=== PATIENT | female | born 1980 | race Caucasian/White ===

== ENCOUNTER 2018-10-25 00:26 | Emergency (ER) | payer OTHER ==
[2018-10-25] MEDS ORDERED: TORAdol 30 mg Injection IM ONE (00:40)
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
[2018-10-25] MEDS ORDERED: TORAdol 30 mg Injection ONE (01:03)
[2018-10-25 01:32] VITALS: BP 128/84; PULSE 84; O2SAT 98
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
== END 2018-10-25 01:38 | disposition home or self-care (01) ==
LOC: ED 00:26
DX: S92.321A Displaced fracture of second metatarsal bone, right foot, initial encounter for closed fracture (principal); S60.511A Abrasion of right hand, initial encounter; V86.65XA Passenger of 3- or 4- wheeled all-terrain vehicle (ATV) injured in nontraffic accident, initial encounter; F41.9 Anxiety disorder, unspecified; M79.89 Other specified soft tissue disorders
CPT/HCPCS: 73130; 96372; 99284; J1885

== ENCOUNTER 2021-10-01 07:23 | Emergency (ER) | payer OTHER ==
[2021-10-01] MEDS ORDERED: Sodium Chloride 0.9% 1000 ML 1,000 ML IV STA (07:53)
[2021-10-01] MEDS ORDERED: Zofran 4 MG/2 ML VIAL IV ONE (07:53)
[2021-10-01 07:55] VITALS: O2SAT 98
[2021-10-01] MEDS ORDERED: Sodium Chloride 0.9% 1000 ML 1,000 ML ONE (07:57)
[2021-10-01] MEDS ORDERED: Zofran 4 MG/2 ML VIAL ONE (07:57)
[2021-10-01 08:04] LABS: Absolute Neutrophil Ct (ANC) 5.71 (1.4-6.9); Basophil (Absolute #) 0.02 (0-0.4); Eosinophil % 1.4 % (0.00-5.0); Eosinophil (Absolute #) 0.12 (0-0.5); Hematocrit 40.1 % (35-47); Hemoglobin 13.4 gm/dl (12.0-16.0); Lymphocyte (Absolute #) 1.79 (1.0-4.6); Mean Cell Volume 95.9 fl (78-100); Mean Corpuscular Hemoglobin 32.1 pg (26-32); Mean Corpuscular Hgb Concent. 33.4 g/dl (32-36); Monocyte (Absolute #) 0.87 (0.0-1.3); Monocytes % 10.2 % (0.0-12.0); Neutrophil % 67.2 % (36.0-66.0); Platelet Count 242 K/mm3 (150-450); Red Blood Count 4.18 M/mm3 (4.1-5.4); Red Cell Distribution Width 13.8 % (11.5-14.0); White Blood Count 8.5 K/mm3 (4.0-10.5)
[2021-10-01 08:10] LABS: Appearance CLEAR (CLEAR); Bilirubin NEGATIVE (NEGATIVE); Blood SMALL Ery/ul (0-5); Epithelial Cells RARE /HPF (FEW); Glucose NEGATIVE (NEGATIVE); Ketones NEGATIVE (NEGATIVE); Leukocyte Esterase NEGATIVE (NEGATIVE); Mucus SLIGHT /HPF (NEGATIVE); Nitrite NEGATIVE (NEGATIVE); Protein,Urine Dip NEGATIVE (Negative); RBC 0-2 /HPF (0-2); Specific Gravity 1.025 (1.005-1.025); Urobilinogen NEGATIVE mg/dL (0-1)
--- NOTE | 2021-10-01 08:11 | ERPHSYRPT ---
- History of Present Illness Time Seen by Provider: 10/01/21 07:30 Historian: translator/interpreter Exam Limitations: no limitations Patient Subjective Stated Complaint: "My stomach hurt." Triage Nursing Assessment: 41 y/o white female with PMH significant for gallbladder disease (sludge in 2018). Reported acute onset RUQ pain around 0200 on 10/01/21 with 2 episodes of vomiting and no diarrhea. She reported that the pain was 6/10 at its worst and has decreased to a 3/10. Denied chest pain, shortness of breath, diarrhea/constipation. Symmetrical chest expansion. heart tones S1/S2 RRR without extra sounds. Lungs vesicular with adequate airflow. Abdomen non-distended, non-surgical, and without peritoneal signs. No noted voluntary/involuntary gaurding or rebound. Negative Lindo's sign. Pt reported mild discomfort in the RUQ upon palpation. Physician History: This is a 41-year-old white female who has known history of gallbladder sludge that was diagnosed 3 to 4 years ago on ultrasound. Apparently, she underwent a HIDA scan which the gallbladder ejection fraction was normal and she was not offered cholecystectomy. In the last year she has had a couple episodes of epigastric, right upper quadrant abdominal pain with radiation into her back. Last night she had chili and a grilled cheese sandwich. This morning, approxi-4 AM she had right upper quad abdominal pain that radiated into her back. The pain was severe as was the nausea. She had a small amount of emesis. On arrival to the emergency room the patient states her pain is better but still present in the right upper quadrant at a level of 3 out of 10. She still has significant nausea. Patient underwent a transabdominal pelvic sonogram on 09/15/2021 and there was a small uterine fibroid present. Patient's primary care provider is Dr. Barajas Timing/Duration: today Activities at Onset: none Quality: aching, stabbing Abdominal Pain Onset Location: RUQ Pain Radiation: back (Right back) Severity of Pain-Max: moderate Severity of Pain-Current: mild Modifying Factors: Improves With: analgesics, vomiting Associated Symptoms: nausea, vomiting, No chest pain, No shortness of breath Previous symptoms: same symptoms as today, no recent treatment Allergies/Adverse Reactions: erythromycin base Allergy (Verified 10/01/21 07:30) Home Medications: Omeprazole 20 mg PO DAILY 10/25/18 [History] Hx Tetanus, Diphtheria Vaccination/Date Given: Yes (2017) Hx Influenza Vaccination/Date Given: No Hx Pneumococcal Vaccination/Date Given: No Travel Risk - International Travel Have you traveled outside of the country in past 3 weeks: No - Coronavirus Screening Are you exhibiting any of the following symptoms?: No Close contact with a COVID-19 positive Pt in past 14-21 Days: No - Vaccine Status Have you recieved a Covid-19 vaccination: Yes Lay Out Technician: Vimessa - Review of Systems Constitutional: No Symptoms Eyes: No Symptoms Ears, Nose, & Throat: No Symptoms Respiratory: No Symptoms Cardiac: No Symptoms Abdominal/Gastrointestinal: Abdominal Pain (Right upper quadrant), Nausea, Vomiting Genitourinary Symptoms: No Symptoms Musculoskeletal: No Symptoms Skin: No Symptoms Neurological: No Symptoms Psychological: No Symptoms Endocrine: No Symptoms Hematologic/Lymphatic: No Symptoms Immunological/Allergic: No Symptoms All Other Systems: Reviewed and Negative - Past Medical History Pertinent Past Medical History: Yes Cardiac History: High Cholesterol GI Medical History: Gallbladder Disease Psycho-Social History: Anxiety - Past Surgical History Past Surgical History: Yes Other Surgical History: rt eye sclero buckle - Social History Smoking Status: Current every day smoker How long have you smoked: 1 yr Exposure to second hand smoke: No Drug Use: none Patient Lives Alone: No - Female History Hx Now: No - Nursing Vital Signs Nursing Vital Signs: Initial Vital Signs Temperature 97 F 10/01/21 07:23 Pulse Rate 68 10/01/21 07:23 Respiratory Rate 18 10/01/21 07:23 Blood Pressure 148/94 10/01/21 07:23 O2 Sat by Pulse Oximetry 98 10/01/21 07:23 Pain Scale Pain Intensity 3 - Physical Exam General Appearance: no apparent distress, alert, anxiety Eye Exam: PERRL/EOMI, eyes nml inspection Ears, Nose, Throat Exam: normal ENT inspection, moist mucous membranes Neck Exam: normal inspection, non-tender, supple, full range of motion Respiratory Exam: normal breath sounds, lungs clear, airway intact, No chest tenderness, No respiratory distress Cardiovascular Exam: regular rate/rhythm, normal heart sounds, normal peripheral pulses Gastrointestinal/Abdomen Exam: soft, normal bowel sounds, tenderness (Right upper quadrant), guarding (Right upper quadrant), No rebound Pelvic Exam: not done Rectal Exam: not done Back Exam: normal inspection, normal range of motion, No CVA tenderness, No vertebral tenderness Extremity Exam: normal inspection, normal range of motion, pelvis stable Neurologic Exam: alert, oriented x 3, cooperative, auto garage 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 II-XII nml as tested, normal mood/affect, nml cerebellar function, nml station & gait, sensation nml Skin Exam: normal color, warm, dry Lymphatic Exam: No adenopathy SpO2 Interpretation: normal SpO2: 98 O2 Delivery: Room Air - Course Nursing assessment & vital signs reviewed: Yes Ordered Tests: Active Orders 24 hr Category Date Time Status IV Insertion STAT Care 10/01/21 07:53 Active ABDOMEN AND PELVIS W/0 CONTRAS [CT] Stat Exams 10/01/21 08:22 Completed AMYLASE Stat Lab 10/01/21 07:50 Completed CBC W DIFF Stat Lab 10/01/21 07:50 Completed CMP Stat Lab 10/01/21 07:50 Completed CULTURE,URINE Stat Lab 10/01/21 07:54 Received HCG,QUALITATIVE URINE Stat Lab 10/01/21 07:55 Completed LIPASE Stat Lab 10/01/21 07:50 Completed Lactic Acid Stat Lab 10/01/21 07:53 Completed UA W/RFX UR CULTURE Stat Lab 10/01/21 07:53 Completed Medication Summary Generic Name Dose Route Start Last Admin Trade Name Freq PRN Reason Stop Dose Admin Sodium Chloride 1,000 mls @ 999 mls/hr 10/01/21 07:53 10/01/21 08:00 Sodium Chloride 0.9% 1000 Ml IV 10/01/21 08:53 999 mls/hr .[id number] STA Administration Discontinued Medications Generic Name Dose Route Start Last Admin Trade Name Freq PRN Reason Stop Dose Admin Sodium Chloride Confirm 10/01/21 07:57 Sodium Chloride 0.9% 1000 Ml Administered 10/01/21 07:58 Dose 1,000 mls @ ud .ROUTE .STK-MED ONE Ondansetron HCl 4 mg 10/01/21 07:53 10/01/21 08:00 Ondansetron Hcl 4 Mg/2 Ml Vial IV 10/01/21 07:54 4 mg STAT ONE Administration Ondansetron HCl Confirm 10/01/21 07:57 Ondansetron Hcl 4 Mg/2 Ml Vial Administered 10/01/21 07:58 Dose 4 mg .ROUTE .STK-MED ONE Lab/Rad Data: Laboratory Result Diagrams 10/01/21 07:50 10/01/21 07:50 Laboratory Results 10/01/21 10/01/21 10/01/21 Range/Units 07:55 07:53 07:53 WBC (4.0-10.5) K/mm3 RBC (4.1-5.4) M/mm3 Hgb (12.0-16.0) gm/dl Hct (35-47) % MCV (78-100) fl MCH (26-32) pg MCHC (32-36) g/dl RDW (11.5-14.0) % Plt Count (150-450) K/mm3 MPV (7.5-11.0) fl Gran % (36.0-66.0) % Eos # (Auto) (0-0.5) Absolute Lymphs (auto) (1.0-4.6) Absolute Monos (auto) (0.0-1.3) Lymphocytes % (24.0-44.0) % Monocytes % (0.0-12.0) % Eosinophils % (0.00-5.0) % Basophils % (0.0-0.4) % Absolute Granulocytes (1.4-6.9) Basophils # (0-0.4) Sodium (137-145) mmol/L Potassium (3.5-5.1) mmol/L Chloride (98-107) mmol/L Carbon Dioxide (22-30) mmol/L Anion Gap (5-15) MEQ/L BUN (7-17) mg/dL Creatinine (0.52-1.04) mg/dL Estimated GFR ML/MIN Glucose (74-106) mg/dL Lactic Acid 1.3 (0.4-2.0) Calcium (8.4-10.2) mg/dL Total Bilirubin (0.2-1.3) mg/dL AST (14-36) U/L ALT (0-35) U/L Alkaline Phosphatase (38-126) U/L Serum Total Protein (6.3-8.2) g/dL Albumin (3.5-5.0) g/dL Amylase (30-110) U/L Lipase (23-300) U/L Urine Color YELLOW (YELLOW) Urine Appearance CLEAR (CLEAR) Urine pH 5.0 (5-6) Ur Specific Ferguson 1.025 (1.005-1.025) Urine Protein NEGATIVE (Negative) Urine Ketones NEGATIVE (NEGATIVE) Urine Blood SMALL (0-5) Melvin/ul Urine Nitrite NEGATIVE (NEGATIVE) Urine Bilirubin NEGATIVE (NEGATIVE) Urine Urobilinogen NEGATIVE (0-1) mg/dL Ur Leukocyte Esterase NEGATIVE (NEGATIVE) Urine WBC (Auto) NONE (0-5) /HPF Urine RBC (Auto) 0-2 (0-2) /HPF U Epithel Cells (Auto) RARE (FEW) /HPF Urine Bacteria (Auto) NONE SEEN (NEGATIVE) /HPF Urine Mucus (Auto) SLIGHT (NEGATIVE) /HPF Urine Culture Reflexed NO (NO) Urine Glucose NEGATIVE (NEGATIVE) mg/dL Urine HCG, Qual NEGATIVE (Negative) 10/01/21 10/01/21 Range/Units 07:50 07:50 WBC 8.5 (4.0-10.5) K/mm3 RBC 4.18 (4.1-5.4) M/mm3 Hgb 13.4 (12.0-16.0) gm/dl Hct 40.1 (35-47) % MCV 95.9 (78-100) fl MCH 32.1 H (26-32) pg MCHC 33.4 (32-36) g/dl RDW 13.8 (11.5-14.0) % Plt Count 242 (150-450) K/mm3 MPV 12.0 H (7.5-11.0) fl Gran % 67.2 H (36.0-66.0) % Eos # (Auto) 0.12 (0-0.5) Absolute Lymphs (auto) 1.79 (1.0-4.6) Absolute Monos (auto) 0.87 (0.0-1.3) Lymphocytes % 21.0 L (24.0-44.0) % Monocytes % 10.2 (0.0-12.0) % Eosinophils % 1.4 (0.00-5.0) % Basophils % 0.2 (0.0-0.4) % Absolute Granulocytes 5.71 (1.4-6.9) Basophils # 0.02 (0-0.4) Sodium 138 (137-145) mmol/L Potassium 4.0 (3.5-5.1) mmol/L Chloride 106 (98-107) mmol/L Carbon Dioxide 23 (22-30) mmol/L Anion Gap 12.9 (5-15) MEQ/L BUN 8 (7-17) mg/dL Creatinine 0.72 (0.52-1.04) mg/dL Estimated GFR > 60.0 ML/MIN Glucose 99 (74-106) mg/dL Lactic Acid (0.4-2.0) Calcium 9.4 (8.4-10.2) mg/dL Total Bilirubin 0.40 (0.2-1.3) mg/dL AST 18 (14-36) U/L ALT 15 (0-35) U/L Alkaline Phosphatase 63 (38-126) U/L Serum Total Protein 7.1 (6.3-8.2) g/dL Albumin 4.2 (3.5-5.0) g/dL Amylase 78 (30-110) U/L Lipase 73 (23-300) U/L Urine Color (YELLOW) Urine Appearance (CLEAR) Urine pH (5-6) Ur Specific Ferguson (1.005-1.025) Urine Protein (Negative) Urine Ketones (NEGATIVE) Urine Blood (0-5) Melvin/ul Urine Nitrite (NEGATIVE) Urine Bilirubin (NEGATIVE) Urine Urobilinogen (0-1) mg/dL Ur Leukocyte Esterase (NEGATIVE) Urine WBC (Auto) (0-5) /HPF Urine RBC (Auto) (0-2) /HPF U Epithel Cells (Auto) (FEW) /HPF Urine Bacteria (Auto) (NEGATIVE) /HPF Urine Mucus (Auto) (NEGATIVE) /HPF Urine Culture Reflexed (NO) Urine Glucose (NEGATIVE) mg/dL Urine HCG, Qual (Negative) - Progress Progress Note: 10/01/21 08:47 CAT scan of the abdomen and pelvis shows a single 1.4 cm gallbladder calculus present. - Departure Departure Disposition: Home Clinical Impression: Right upper quadrant abdominal pain, Nausea and vomiting, Cholelithiasis Condition: Stable Critical Care Time: No Referrals: MANAN MCGOVERN [Primary Care Provider] - Follow up/PCP as directed Additional Instructions: Avoid fatty greasy spicy foods. Follow-up with your primary care provider for further evaluation and management. Prescriptions: Ondansetron ODT 4 MG [Zofran Odt 4 mg] 4 mg PO Q6H PRN PRN #10 tablet PRN Reason: Vomiting
[2021-10-01 08:24] LABS: Bacteria NONE SEEN /HPF (NEGATIVE)
[2021-10-01 08:28] LABS: ALBUMIN 4.2 g/dL (3.5-5.0); ALKALINE PHOSPHATASE 63 U/L (38-126); AMYLASE 78 U/L (30-110); ANION GAP 12.9 MEQ/L (5-15); BLOOD UREA NITROGEN 8 mg/dL (7-17); CHLORIDE 106 mmol/L (98-107); Calcium 9.4 mg/dL (8.4-10.2); Carbon Dioxide 23 mmol/L (22-30); Creatinine 1 0.72 mg/dL (0.52-1.04); EST GLOMERULAR FILTRATION RATE > 60.0 ML/MIN; Glucose 99 mg/dL (74-106); LIPASE 73 U/L (23-300); SGOT/AST 18 U/L (14-36); SGPT/ALT 15 U/L (0-35); SODIUM 138 mmol/L (137-145); Total Protein 7.1 g/dL (6.3-8.2)
--- NOTE | 2021-10-01 08:45 | XRAY ---
Indication: Right upper quadrant pain and nausea. Multiple contiguous axial images obtained through the abdomen and pelvis without contrast using renal stone protocol. Comparison: None Lung bases are clear. Heart not enlarged. No renal calculus or evidence for obstructive uropathy in either system. No free fluid/air. Noncontrasted stomach and bowel loops appear nonobstructed. Normal appendix. Mild scattered descending and sigmoid diverticulosis without diverticulitis. Gallbladder mildly distended with 1.4 cm stone. Remaining liver, gallbladder, pancreas, spleen, adrenal glands, kidneys, ureters, bladder, uterus, and aorta are unremarkable for noncontrast exam. Osseous structures intact. Impression: 1. Negative renal calculus or evidence for obstructive uropathy. 2. 1.4 cm gallstone better evaluated with sonogram if clinically warranted. 3. Incidental colonic diverticulosis.
[2021-10-01 08:49] VITALS: BP 140/77; PULSE 71
== END 2021-10-01 09:04 | disposition home or self-care (01) ==
LOC: ED 07:23
DX: K80.20 Calculus of gallbladder without cholecystitis without obstruction (principal); R10.11 Right upper quadrant pain; R11.2 Nausea with vomiting, unspecified; E78.5 Hyperlipidemia, unspecified; Z72.0 Tobacco use
CPT/HCPCS: 36000; 36415; 74176; 80053; 81001; 82150; 83605; 83690; 84703; 85025; 87086; 96360; 96374; 99284; J2405

== ENCOUNTER 2023-05-15 17:49 | Emergency (ER) | payer OTHER ==
[2023-05-15] MEDS ORDERED: TORAdol 30 mg Injection IV ONE (18:07)
[2023-05-15] MEDS ORDERED: Zofran 4 MG/2 ML VIAL IV ONE (18:07)
[2023-05-15] MEDS ORDERED: Sodium Chloride 0.9% 1000 ML 1,000 ML IV STA (18:07)
[2023-05-15] MEDS ORDERED: TYLENOL 325 MG PO ONE (18:07)
[2023-05-15] MEDS ORDERED: solu-MEDROL 125 MG, Sterile H2O 10 ml 10 ML IV ONE ×2 (18:07)
--- NOTE | 2023-05-15 18:07 | ERPHSYRPT ---
- History of Present Illness Time Seen by Provider: 05/15/23 18:00 Source: patient Exam Limitations: no limitations Patient Subjective Stated Complaint: Migraine Headache Triage Nursing Assessment: Patient has had a typical migraine headache for the past 1 day that has not responded to her home medications Physician History: Patient comes in with a left-sided throbbing headache typical of her usual migraines that has not responded to home therapy and is lasted for the past 1 day. Patient is on continuous hormone therapy as she states that is hormone induced to help prevent these headaches. She has not been evaluated treated anymore for headache over the past 1 day. Timing/Duration: yesterday Quality: throbbing Head Pain Location: parietal Severity of Pain-Max: moderate Severity of Pain-Current: moderate Recent Head Trauma: chronic headaches (Usually gets to a month and is on hormone contraception to help prevent him) Modifying Factors: Improves With: rest. Worsens With: exposure to light, movement, noise Associated Symptoms: sensitive to light, No confusion, No dizziness, No fatigue, No facial pain, No fever/chills, No flushing, No light-headedness, No loss of consciousness, No nausea/vomiting, No nasal congestion, No nasal drainage, No neck pain, No numbness in legs/feet, No rash, No sweating, No scotoma, No seizures, No speech problems, No stiff neck, No trouble walking, No vision changes, No visual disturbance, No weakness Previous symptoms: same symptoms as today, no recent treatment Allergies/Adverse Reactions: erythromycin base Allergy (Verified 05/15/23 18:07) Home Medications: Omeprazole 20 mg PO BID 10/25/18 [History] l-Norgest/E.estradiol-E.estrad [Ashlyna 0.15-0.03-0.01 mg Tab] 1 each PO DAILY 0 05/15/23 [History] Hx Tetanus, Diphtheria Vaccination/Date Given: Yes (2017) Hx Influenza Vaccination/Date Given: No Hx Pneumococcal Vaccination/Date Given: No Travel Risk - Vaccine Status Have you recieved a Covid-19 vaccination: Yes Rubble Placer: [facility] - Review of Systems Constitutional: No Fever, No Chills Eyes: No Eye Pain, No Eye Redness Ears, Nose, & Throat: No Ear Discharge, No Nose Congestion, No Nose Discharge Respiratory: No Cough, No Dyspnea Cardiac: No Chest Pain, No Edema, No Syncope Abdominal/Gastrointestinal: Nausea, No Abdominal Pain, No Vomiting, No Diarrhea, No Hematemesis, No Melena Genitourinary Symptoms: No Dysuria, No Hematuria, No Flank Pain Musculoskeletal: No Back Pain, No Neck Pain Skin: No Rash Neurological: Headache, No Dizziness, No Focal Weakness, No Parasthesia, No Seizure, No Sensory Changes Psychological: No Symptoms Endocrine: No Symptoms Hematologic/Lymphatic: No Easy Bleeding, No Easy Bruising All Other Systems: Reviewed and Negative - Past Medical History Pertinent Past Medical History: Yes Neurological History: Migraines Cardiac History: High Cholesterol Respiratory History: No Pertinent History Endocrine Medical History: No Pertinent History Musculoskeletal History: Fibromyalgia GI Medical History: Gallbladder Disease Psycho-Social History: Anxiety Other Medical History: ORTHOSTATIC HYPOTENSION - Past Surgical History Past Surgical History: Yes Other Surgical History: rt eye sclero buckle - Social History Smoking Status: Current every day smoker How long have you smoked: 1 yr Exposure to second hand smoke: No Drug Use: none Patient Lives Alone: No - Nursing Vital Signs Nursing Vital Signs: Initial Vital Signs Blood Pressure 177/105 05/15/23 17:56 Pain Scale Pain Intensity 3 - Physical Exam General Appearance: no apparent distress Eye Exam: PERRL/EOMI Ears, Nose, Throat Exam: normal ENT inspection, moist mucous membranes Neck Exam: normal inspection, non-tender, supple, full range of motion, No meningismus, No Brudzinski Respiratory Exam: normal breath sounds, lungs clear, airway intact, No diminished breath sounds, No crackles/rales, No rhonchi, No wheezing Cardiovascular Exam: regular rate/rhythm, normal heart sounds, capillary refill <2 sec Gastrointestinal/Abdominal Exam: soft, No tenderness, No distention Back Exam: normal inspection, normal range of motion, No CVA tenderness Mental Status Exam: alert, oriented x 3, 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 Exam: normal hearing, normal speech, PERRL, No facial droop Coordination/Gait Exam: normal cerebellar function Motor/Sensory Exam: no motor deficit, no sensory deficit Skin Exam: normal color, warm, dry, No rash Lymphatic Exam: No adenopathy SpO2 Interpretation: normal O2 Delivery: Room Air - Course Nursing assessment & vital signs reviewed: Yes Ordered Tests: Active Orders 24 hr Category Date Time Status HCG QUALITATIVE, URINE Stat Lab 05/15/23 19:00 Completed Medication Summary Generic Name Dose Route Start Last Admin Trade Name Qing PRN Reason Stop Dose Admin Magnesium Sulfate/Dextrose 100 mls @ 100 mls/hr 05/15/23 18:15 05/15/23 19:21 Magnesium 1 Gm / 100 Ml D5w IV 05/15/23 20:14 Not Given Q1H EMY Discontinued Medications Generic Name Dose Route Start Last Admin Trade Name Qing PRN Reason Stop Dose Admin Acetaminophen 975 mg 05/15/23 18:07 05/15/23 18:23 Acetaminophen 325 Mg Tablet PO 05/15/23 18:08 975 mg STAT ONE Administration Acetaminophen Confirm 05/15/23 18:20 Acetaminophen 325 Mg Tablet Administered 05/15/23 18:21 Dose 975 mg .ROUTE .STK-MED ONE Methylprednisolone Sodium 0 mg 05/15/23 18:07 05/15/23 18:24 Succinate 125 mg/ Sterile IV 05/15/23 18:08 125 mg Water 10 ml STAT ONE Administration Sodium Chloride 1,000 mls @ 999 mls/hr 05/15/23 18:07 05/15/23 19:20 Sodium Chloride 0.9% 1000 Ml IV 05/15/23 19:07 Infused .Q1H1M STA Infusion Sodium Chloride Confirm 05/15/23 18:17 Sodium Chloride 0.9% 1000 Ml Administered 05/15/23 18:18 Dose 1,000 mls @ ud .ROUTE .STK-MED ONE Ketorolac Tromethamine 30 mg 05/15/23 18:07 05/15/23 18:24 Ketorolac Tromethamine 30 Mg/Ml Inj IV 05/15/23 18:08 30 mg STAT ONE Administration Ketorolac Tromethamine Confirm 05/15/23 18:17 Ketorolac Tromethamine 30 Mg/Ml Inj Administered 05/15/23 18:18 Dose 30 mg .ROUTE .STK-MED ONE Methylprednisolone Sodium Succinate Confirm 05/15/23 18:17 Methylprednis Sod Succ 125 Mg/2 Ml Vial Administered 05/15/23 18:18 Dose 125 mg .ROUTE .STK-MED ONE Ondansetron HCl 4 mg 05/15/23 18:07 05/15/23 18:24 Ondansetron Hcl 4 Mg/2 Ml Vial IV 05/15/23 18:08 4 mg STAT ONE Administration Ondansetron HCl Confirm 05/15/23 18:17 Ondansetron Hcl 4 Mg/2 Ml Vial Administered 05/15/23 18:18 Dose 4 mg .ROUTE .STK-MED ONE Sterile Water Confirm 05/15/23 18:17 Water For Injection,Sterile 10 Ml Vial Administered 05/15/23 18:18 Dose 10 ml IJ .STK-MED ONE Lab/Rad Data: Laboratory Results 05/15/23 Range/Units 19:00 Urine HCG, Qual NEGATIVE (NEGATIVE) - Progress Progress: improved Air Movement: good Progress Note: 05/15/23 19:09 Patient is feeling much better with the IV hydration and medication and her blood pressure has come down to the near normal range 05/15/23 19:29 Patient is a 43-year-old female with a history of migraine headaches who takes hormone therapy to help prevent them who comes in with a typical migraine and left-sided throbbing in nature with nausea and light sensitivity over the past 1 day did not respond to her home therapies. Patient did not have any other concerning review of systems or physical exam findings, so do not feel she required any imaging or lab work at this time, so an IV was placed, IV hydration was started, a gram of magnesium sulfate was given, 30 mg of IV Toradol, IV Zofran was given and IV Solu-Medrol. On reevaluation patient's headache improved significantly and her blood pressure was elevated when she came in but improved after medication and IV hydration back to more manageable range as she has no issues with hypertension. At this time, I feel presentation is consistent with a migraine headache that does not require any other imaging or intervention or lab work at this time and I did check a urine hCG which was negative. Patient be discharged home with [facility] to do to help resolve headaches in the future as well as Zofran as needed for nausea symptoms. Patient is return back to the nearest emergency room she has any fever, new vision change, new change in headache intensity or frequency, new stiff neck, any skin rash, new easy bruising, new abdominal pain, new chest pain, new dyspnea or any other concerning signs or symptoms that were not present at today's emergency room visit for immediate reevaluation in the nearest emergency department Counseled pt/family regarding: diagnosis, need for follow-up Medical Desision Making - Risk of complications Minimal Risk: Minimal risk of morbidity The pt has a mod risk of morbidity or mortality based on: Need for prescription drug management - Departure Departure Disposition: Home Clinical Impression: Elevated blood-pressure reading without diagnosis of hypertension Migraine headache without aura Qualifiers: Status migrainosus presence: without status migrainosus Intractability: not intractable Qualified Code(s): G43.009 - Migraine without aura, not intractable, without status migrainosus Condition: Good Critical Care Time: No Referrals: [facility] [NON-STAFF PHY W/O PRIVILEGES] - Follow up with PCP 1 day Instructions: Headache, Adult (DC), DASH Diet Additional Instructions: Return back to the nearest emergency room for any worsening fever, chills, nausea, vomiting, worsening headache, new vision changes, new loss of coordination or strength or sensation in her hands or legs, new abdominal pain, new back pain, new chest pain, new shortness of breath or any other concerning signs or symptoms that were not present at today's emergency room visit for immediate reevaluation in the nearest emergency department Forms: Work/School Release Form Prescriptions: Ondansetron ODT 4 MG [Zofran Odt 4 mg] 4 mg PO Q8HPRN PRN #10 tablet PRN Reason: Nausea Rimegepant Sulfate [Nurtec Odt] 75 mg PO DAILY PRN #5 tablet MDD 1 PRN Reason: Headache
[2023-05-15] MEDS ORDERED: TORAdol 30 mg Injection ONE (18:17)
[2023-05-15] MEDS ORDERED: Magnesium 1 Gm / 100 Ml D5W*** 100 ML IV ONE (18:17)
[2023-05-15] MEDS ORDERED: Sodium Chloride 0.9% 1000 ML 1,000 ML ONE (18:17)
[2023-05-15] MEDS ORDERED: solu-MEDROL ONE (18:17)
[2023-05-15] MEDS ORDERED: Zofran 4 MG/2 ML VIAL ONE (18:17)
[2023-05-15] MEDS ORDERED: Sterile H2O 10 ml IJ ONE (18:17)
[2023-05-15] MEDS ORDERED: TYLENOL 325 MG ONE (18:20)
[2023-05-15] MEDS: Magnesium 1 Gm / 100 Ml D5W*** 100 ML IV SCH ×2 (18:23→19:21)
[2023-05-15 19:13] LABS: HCG URINE TEST NEGATIVE (NEGATIVE)
[2023-05-15 19:17] VITALS: RESP 18
[2023-05-15 20:02] VITALS: BP 155/108; PULSE 84; O2SAT 99
== END 2023-05-15 20:03 | disposition home or self-care (01) ==
LOC: ED 17:49
DX: G43.009 Migraine without aura, not intractable, without status migrainosus (principal); R03.0 Elevated blood-pressure reading, without diagnosis of hypertension; E78.5 Hyperlipidemia, unspecified; Z79.899 Other long term (current) drug therapy; Z72.0 Tobacco use
CPT/HCPCS: 81025; 96360; 96374; 96375; 99284; J1885; J2405; J2930; J3475; A9270-GY